=== PATIENT | male | born 1990 | race Two or more races ===

== ENCOUNTER 2017-01-02 10:17 | Outpatient (CLI) | payer OTHER | END 2017-01-02 10:18 | disposition home or self-care (01) | DX: G47.30 Sleep apnea, unspecified (principal); G47.10 Hypersomnia, unspecified; G47.8 Other sleep disorders; R06.83 Snoring ==

== ENCOUNTER 2017-01-31 19:22 | Outpatient (CLI) | payer OTHER | END 2017-01-31 19:23 | disposition home or self-care (01) | LOC: SC 19:22 | PROVIDERS: ATTEND Internal Medicine Pulmonary Disease | DX: G47.33 Obstructive sleep apnea (adult) (pediatric) (principal); Z68.31 Body mass index [BMI] 31.0-31.9, adult | CPT/HCPCS: 95810 ==

== ENCOUNTER 2017-02-22 09:18 | Outpatient (CLI) | payer OTHER | END 2017-02-22 09:19 | disposition home or self-care (01) | LOC: SC 09:18 | PROVIDERS: ATTEND Nurse Practitioner Family | DX: G47.33 Obstructive sleep apnea (adult) (pediatric) (principal) | CPT/HCPCS: 99212; 99214 ==

== ENCOUNTER 2017-03-27 18:45 | Outpatient (CLI) | payer OTHER | END 2017-03-27 18:46 | disposition home or self-care (01) | LOC: SC 18:45 | PROVIDERS: ATTEND Internal Medicine Pulmonary Disease | DX: G47.33 Obstructive sleep apnea (adult) (pediatric) (principal) | CPT/HCPCS: 95811 ==

== ENCOUNTER 2017-05-01 10:32 | Outpatient (CLI) | payer OTHER | END 2017-05-01 10:33 | disposition home or self-care (01) | LOC: SC 10:32 | PROVIDERS: ATTEND Nurse Practitioner Family | DX: G47.33 Obstructive sleep apnea (adult) (pediatric) (principal) | CPT/HCPCS: 99212; 99214 ==

== ENCOUNTER 2017-07-17 10:40 | Outpatient (CLI) | payer OTHER | END 2017-07-17 10:41 | disposition home or self-care (01) | LOC: SC 10:40 | PROVIDERS: ATTEND Internal Medicine Pulmonary Disease | DX: G47.33 Obstructive sleep apnea (adult) (pediatric) (principal) | CPT/HCPCS: 99212; 99213 ==

== ENCOUNTER 2017-08-14 13:17 | Outpatient (CLI) | payer OTHER | END 2017-08-14 13:18 | disposition home or self-care (01) | LOC: SC 13:17 | PROVIDERS: ATTEND Internal Medicine Pulmonary Disease | DX: G47.33 Obstructive sleep apnea (adult) (pediatric) (principal) | CPT/HCPCS: 99212; 99213 ==

== ENCOUNTER 2017-10-16 13:18 | Outpatient (CLI) | payer OTHER | END 2017-10-16 13:19 | disposition home or self-care (01) | LOC: SC 13:18 | PROVIDERS: ATTEND Internal Medicine Pulmonary Disease | DX: G47.33 Obstructive sleep apnea (adult) (pediatric) (principal) | CPT/HCPCS: 99212; 99213 ==

== ENCOUNTER 2017-11-20 13:23 | Outpatient (CLI) | payer OTHER | END 2017-11-20 13:24 | disposition home or self-care (01) | LOC: SC 13:23 | PROVIDERS: ATTEND Internal Medicine Pulmonary Disease | DX: G47.33 Obstructive sleep apnea (adult) (pediatric) (principal) | CPT/HCPCS: 99212; 99213 ==